=== PATIENT | female | born 1985 | race Caucasian/White ===

== ENCOUNTER 2024-12-01 15:19 | Emergency (ER) | payer OTHER ==
[~2024-12-01] VITALS: Ht 175.3 cm; Wt 57.2 kg
[2024-12-01 16:06] VITALS: BP 106/68; TEMP 98.5; O2SAT 97
== END 2024-12-01 16:07 ==
LOC: ER 15:42
DX: M25.562 Pain in left knee (principal); M25.561 Pain in right knee; Z60.2 Problems related to living alone